=== PATIENT | female | born 1985 | race Caucasian/White ===

== ENCOUNTER 2022-05-24 16:45 | Outpatient (RCR) | payer OTHER, SELFPAY | END 2022-06-01 07:44 | disposition home or self-care (01) | PROVIDERS: Visit Provider Orthopaedic Surgery Sports Medicine | DX: M21.42 Flat foot [pes planus] (acquired), left foot (principal); Z51.89 Encounter for other specified aftercare | CPT/HCPCS: 97110; 97140; 97161 ==

== ENCOUNTER 2023-03-29 13:40 | Outpatient (CLI) | payer OTHER, SELFPAY ==
--- NOTE | 2023-03-29 13:45 | CRLHL7_ITS ---
For Patients: As a result of the 21st Century Cures Act, medical imaging exams and procedure reports are released immediately into your electronic medical record. You may view this report before your referring provider. If you have questions, please contact your health care provider. HISTORY: Bilateral hip pain. TECHNIQUE: Noncontrast MRI of the right and left hips. Axial T1, coronal T1 and coronal STIR large [id number] images were obtained of the entire pelvis. Axial, sagittal and coronal proton density and proton density fat-sat small prnrm-vd-[id number] images were individually acquired of the right and left hips. COMPARISON: No prior. FINDINGS: Osseous structures: There is no acute fracture or pathologic marrow replacement process. No avascular necrosis. No acute stress related change. - Musculotendinous structures and bursae: On the right, there is mild subgluteus daphnie trochanteric bursitis. There is soft tissue edema adjacent to a portion of the gluteus medius tendon more posteriorly with some limited muscle edema involving a small portion of the muscle. There is no high-grade tear of the distal gluteal tendons on the right. On the left, there is no significant tear of the distal gluteal tendons. There is trace fluid within the left subgluteus daphnie trochanteric bursa. Common hamstring tendons are intact. Distal iliopsoas tendons are intact. No iliopsoas bursitis. Conjoined adductor tendons are intact at their medial pubic attachment site. - Right hip: No right hip joint effusion. No significant femoral head-neck junction osseous bump. No definite acetabular retroversion. The articular surfaces of the hip are smooth without focal articular cartilage defect. There is abnormal signal at the base of the anterior superior acetabular labrum on sagittal PD image 21 of series 8 indicating labral tearing. Other portions of labrum appear intact. No right hip joint effusion. No avascular necrosis of the right femoral head. - Left hip: No significant femoral head-neck junction osseous bump. No acetabular retroversion. The articular surfaces of the hip are smooth without focal articular cartilage defect. There is increased signal within the posterior superior acetabular labrum on coronal PD fat-sat 15 of series 5 which could reflects at least labral degeneration and likely relates to labral tearing. Changes extend to involve the superior lateral acetabular labrum. The anterior superior labrum appears more intact. No left hip joint effusion. No avascular necrosis of the left femoral head. - Intrapelvic soft tissues: Distended urinary bladder. Prior hysterectomy. No inguinal hernia. IMPRESSION: 1. Zxtbi-tsfxcdw-zsay-left subgluteus daphnie trochanteric bursitis. 2. On the right, limited strain changes involving the gluteus medius muscle. No high-grade distal tendon tear. 3. On the right, there is likely a small area of anterior superior labral tearing. The right hip joint space appears otherwise maintained. 4. On the left, there is probable tearing of the posterior superior labrum extending to involve the superior lateral acetabular labrum. Left hip joint otherwise maintained. 5. No fracture, stress change or avascular necrosis. Dictated by Edgardo Medina MD @ 03/30/2023 4:00:55 PM RUTH/Dictated by: Edgardo Medina MD @ 03/30/2023 1:19:00 PM (Electronically Signed)
--- NOTE | 2023-03-29 15:15 | CRLHL7_ITS ---
For Patients: As a result of the Century Cures Act, medical imaging exams and procedure reports are released immediately into your electronic medical record. You may view this report before your referring provider. If you have questions, please contact your health care provider. INDICATION: Somatic dysfunction of lumbar region. Low back pain. TECHNIQUE: Multiplanar multisequence noncontrast MR images acquired through the lumbar spine. COMPARISON: None. FINDINGS: Mildly exaggerated lumbar lordosis. Mild leftward lumbar curvature. Vertebral heights maintained. No acute fracture or spondylolisthesis. No T1 hypointense marrow replacing lesions or marrow edema. Normal conus terminates at L1-2. T12-L1 through L2-3: No spinal canal or neural foraminal narrowing. L3-4: Mild disc degeneration. Mild facet arthropathy. No spinal canal or neural foraminal narrowing. L4-5: Annular bulge. Mild facet arthropathy. No spinal canal or neural foraminal narrowing. L5-S1: Epidural fat prominence dlyv-je-aahcqufmqb tapers the thecal sac. Annular bulge. Mild facet arthropathy. No neural foraminal narrowing. IMPRESSION: 1. Mild multilevel lumbar spondylosis without spinal canal or neural foraminal stenosis. 2. Mild multilevel facet arthropathy in the lower lumbar spine. Dictated by Liu Pinto MD @ 03/30/2023 7:50:05 AM (Electronically Signed)
== END 2023-03-29 13:41 | disposition home or self-care (01) ==
PROVIDERS: PCP Nurse Practitioner Family; Visit Provider Physician Assistant
DX: M70.62 Trochanteric bursitis, left hip (principal); S73.192A Other sprain of left hip, initial encounter; S73.191A Other sprain of right hip, initial encounter; M70.61 Trochanteric bursitis, right hip; M54.50 Low back pain, unspecified; M47.896 Other spondylosis, lumbar region; M25.552 Pain in left hip; M25.551 Pain in right hip
CPT/HCPCS: 72148; 73721

== ENCOUNTER 2024-04-25 13:43 | Outpatient (CLI) | payer OTHER, SELFPAY | END 2024-04-25 13:44 | disposition home or self-care (01) | PROVIDERS: PCP Nurse Practitioner Family; Visit Provider Registered Nurse | DX: N64.4 Mastodynia (principal); N64.52 Nipple discharge; Z13.220 Encounter for screening for lipoid disorders; Z13.1 Encounter for screening for diabetes mellitus | CPT/HCPCS: 80061; 82947; 84146; 84443 ==

== ENCOUNTER 2024-05-22 08:31 | Outpatient (CLI) | payer OTHER, SELFPAY ==
--- NOTE | 2024-05-22 08:45 | CRLHL7_ITS ---
For Patients: As a result of the Cures Act, medical imaging exams and procedure reports are released immediately into your electronic medical record. You may view this report before your referring provider. If you have questions, please contact your health care provider. DIGITAL DIAGNOSTIC BILATERAL MAMMOGRAM USING TOMOSYNTHESIS AND COMPUTER-AIDED DETECTION LEFT BREAST ULTRASOUND CLINICAL HISTORY: LEFT breast nipple discharge. COMPARISON: None. TECHNIQUE: Digital BILATERAL mammogram in four projections with computer-aided detection. Tomosynthesis was used in this interpretation. Real-time ultrasound imaging of LEFT breast with imaging documentation. BREAST COMPOSITION: The breasts are heterogeneously dense, which may obscure small masses. FINDINGS: 3D CC/MLO BILATERAL mammogram images submitted. No suspicious mass or architectural distortion. No suspicious calcifications. Targeted LEFT breast ultrasound performed in the subareolar region. No fluid collection or mass. No duct ectasia. IMPRESSION: No suspicious findings. RECOMMENDATIONS: Annual BILATERAL screening mammography. Results and recommendations discussed with the patient. BI-RADS Category 2: Benign A lay language report of this examination will be provided to the patient. Dictated by Ethan Vega MD @ 05/22/2024 10:49:25 AM j/Dictated by: Ethan eVga MD @ 05/22/2024 10:49:00 AM (Electronically Signed)
--- NOTE | 2024-05-22 09:15 | CRLHL7_ITS ---
For Patients: As a result of the Cures Act, medical imaging exams and procedure reports are released immediately into your electronic medical record. You may view this report before your referring provider. If you have questions, please contact your health care provider. PLEASE SEE DIGITAL DIAGNOSTIC BILATERAL MAMMOGRAM PERFORMED SAME DAY CRL:esau cifuentes/Dictated by: Ethan Vega MD @ 05/22/2024 10:49:00 AM (Electronically Signed)
== END 2024-05-22 08:32 | disposition home or self-care (01) ==
LOC: MAMMO 08:33
PROVIDERS: Visit Provider Registered Nurse
DX: N64.52 Nipple discharge (principal); N64.4 Mastodynia
CPT/HCPCS: 76642; 77066; G0279

== ENCOUNTER 2024-11-04 10:29 | Emergency (ER) | payer OTHER, SELFPAY ==
--- OUTSIDE RECORDS SUMMARY | 2024-11-04 10:31 | XMS_ITS | Clinical Summary ---
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 Allergenic Extracts Hives,Itching 11/21/2011 Iodinated Contrast Media Shortness Of Breath,Dizziness 03/14/2013 Diatrizoate Allergen Shortness Of Breath,Itching 04/11/2016 Lactase GI Upset 06/27/2006 Latex Other - Describe In Comment Field 10/28/2013 LATEX PRECAUTIONS due to frequent exposure to latex and hx of seasonal allergies. Nitrofurantoin Monohyd/M-Cryst Hives 04/11/2016 Methocarbamol Other - Describe In Comment Field,Anxiety Medium 09/13/2010 Feelings of restlessness and anxiety Mold Extracts Hives,Edema 11/21/2011 Hydrocodone-Acetaminoph en Headache 07/23/2012 Migraine strength headaches Migraine Bupropion Hives 06/27/2006 Medications cetirizine (ZYRTEC) 10 mg tablet Take 1 tablet by mouth once daily. 0 3 Active oxymetazoline (AFRIN) 0.05 % Drop Inhale 2 Sprays in the nostril(s) 2 times daily if needed. Active cyclobenzaprine (FLEXERIL) 10 mg tablet Take 0.5 tablets by mouth at bedtime if needed for Muscle Spasm. 5 tablet 0 5 Active cholecalciferol (VITAMIN D) 1,000 unit capsule Take 1 capsule by mouth once daily. 0 5 Active PREMARIN 1.25 mg tabletIndication s:Hot flashes due to surgical menopause TAKE ONE TABLET BY MOUTH ONCE DAILY 90 tablet 1 5 Active pregabalin (LYRICA) 200 mg capsule Take 1 capsule by mouth 3 times daily. 0 6 Active celecoxib (CELEBREX) 100 mg capsule Take 1 capsule by mouth 2 times daily with meals. 0 6 Active oxyCODONE-acetam inophen, 10-325 mg, (PERCOCET) 10-325 mg per tablet Take 1 tablet by mouth every 4 hours if needed for Pain. 0 6 Active estrogens conjugated (PREMARIN) 1.25 mg tabletIndication s:Surgical menopause Take 1 tablet by mouth once daily. 90 tablet 4 6 Active SUMAtriptan (IMITREX) 100 mg tabletIndication s:Other type of migraine TAKE 1 TABLET BY MOUTH. 1 TABLET BY MOUTH DAILY FOR MIGRAINE NEEDED. MAY REPEAT EVERY 2 HOURS. MAX DOSE IS 200 MG PER 24 18 tablet 0 6 Active fluticasone (50 mcg per actuation) nasal solution (FLONASE) Inhale 2 Sprays in the nostril(s). Active oxymetazoline (AFRIN) 0.05 % nasal spray Inhale 2 Sprays in the nostril(s). Active celecoxib (CELEBREX) 200 mg capsule 6 Active cyclobenzaprine (FLEXERIL) 5 mg tablet 6 Active oxyCODONE (OXYCONTIN) 10 mg SUSTAINED release tablet 6 Active benzonatate (TESSALON) 100 mg capsuleIndicatio ns:Upper respiratory tract infection, unspecified type Take 1 capsule by mouth 3 times daily if needed for Cough. 21 capsule 6 Active fluticasone (50 mcg per actuation) nasal solution (FLONASE)Indicat ions:Seasonal allergies INHALE 2 SPRAYS IN EACH NOSTRIL TWICE DAILY 1 Bottle 6 Active Active Problems Problem Noted Date Diagnosed Date Sinusitis 08/13/2013 Pain medication agreement 05/22/2013 Overview (04/10/2015): Agreement signed and scanned. Pt now seeing [facility] Dr. Kahtleen Paul for pain management. Chronic pelvic pain yet- taking percocet and doing PT there. Update: 04/10/2015. Pt reports that pain is now being controlled with symbalta and Aleve. Percocet was stopped in Ari2014. Migraine 02/28/2013 Overview (02/28/2013): Treated with Imitrex Seasonal allergies 04/26/2012 Unspecified sinusitis (chronic) 02/23/2011 Vitamin D deficiency 12/06/2010 Unspecified examination 10/07/2009 Overview (02/28/2013): Last Pap Smear 11/2010 Adult TD 11/2005 Immunizations Immunization Administration Dates Next Due Influenza, IIV3 (Age >=3 years) 05/14/2010,06/06,06/27/2006 Influenza, IIV4 05/05/2015 Td (Age >=7 Years) 11/12/2005 Family History Medical History Relation Name Comments Psychiatric illness Father Bipolar Seizures Maternal Aunt Seizures Maternal Grandmother Alcohol/Drug Mother Alcohol Genitourinary Disease Mother Kidney Failure Heart Disease Mother heart 'problem s' Hypertension Mother Psychiatric illness Mother Bipolar Seizures Sister dipika Relation Name Status Comments Father (Age 36) drowning Maternal Aunt Maternal Grandmother Mother Alive Sister dipika Social History Tobacco Use Types Packs/Day Years Used Date Smoking Tobacco: Former Cigarettes 0.5 2 0 08/14/2002 - 08/14/2004 Smokeless Tobacco: Never Alcohol Use Standard Drinks/Week Comments No 0 (1 standard drink = 0.6 oz pur e alcohol) Comments No Sex and Gender Information Value Date Recorded Sex Assigned at Not on file 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 Gender Identity Not on file Sexual Orientation Not on file 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 file Not on file Not on file Obstetrics History Para Term AB IAB SAB Ectopic Multiple Livin g Live Births 1 1 1 1 1 Date Outcome GA Total Labor Labor/2nd/3rd Weight Sex Type Anes PTL [place] A1 A5 Name Clin 08/29 Term F Vag-S pont Living [facility] Last Filed Vital Signs Vital Sign Reading Time Taken Comments Blood Pressure 120/80 05/21/2016 12:55 PM CDT Pulse 79 05/21/2016 12:55 PM CDT Temperature 36.4 C (97.5 F) 05/21/2016 12:55 PM CDT Respiratory Rate 16 05/21/2016 12:55 PM CDT Oxygen Saturation 97% 05/21/2016 12:55 PM CDT Inhaled Oxygen Concentration - - Weight 88.9 kg (196 lb) 05/21/2016 12:55 PM CDT Height 162.6 cm (5' 4.02) 05/21/2016 12:55 PM C DT Body Mass Index 33.63 05/21/2016 12:55 PM CDT Plan of Treatment Health Maintenance Due Date Last Done Comments Tdap 1994 Depression screening for age 12+ 1995 Tetanus booster 11/13/2015 11/12/2005 BMI (ht and wt on same day) for age 18+ 05/21/2017 05/21/2016, 12/04/2015 COVID-19 vaccine series (2023- season) 2024 Influenza Vaccine (#1) 2024 5, 05/14/2010, 06/06/2007, Additional history exists HIV for age 15-65 Completed 04/18/2013 Hepatitis C screening for age 18-79 Completed 04/18/2013 Pneumococcal series for age 6-49 Aged Out No longer eligible based on patient's age to complete this topic Procedures Procedure Name Priority Date/Time Associated Diagnosis Comments EXPOSURE (BBF) RAPID HIV STAT 04/18/2013 5:15 PM CDT EXPOSURE (BBF) ANTI HCV STAT 04/18/2013 5:15 PM CDT from Last 3 Months or Most Recently Relevant to Health Maintenance Results * PATIENT SOURCE RAPID HIV (04/18/2013 5:15 PM CDT) SOURCE RAPID HIV SCREEN Non-react mejia (Nonreact mejia) [facility] Blood specimen (specimen) BLOOD SPECIMEN / Unknown 04/18/2013 5:15 PM CDT 04/18/2013 4:55 PM CDT Suzy Prince MD SEND OUTS Final Result [facility] [place]IP [id number] [place] [id number] * PATIENT SOURCE ANTI HCV (04/18/2013 5:15 PM CDT) SOURCE ANTI HCV Non-react mejia [facility] Blood specimen (specimen) BLOOD SPECIMEN / Unknown 04/18/2013 5:15 PM CDT 04/18/2013 4:55 PM CDT Suzy Prince MD SEND OUTS Final Result [facility] [place] ZIP [id number] [place] [id number] from Last 3 Months or Most Recently Relevant to Health Maintenance Insurance [employer] [facility] Member Subscriber Plan / Payer (Ef fective 2008-Present) Name:Grayson Cooley Relation to Subscriber:Self Name:Grayson Cooley Payer ID:Not on file Group ID:[id number] Type:Not on file [id number] Address: [address] [address] [facility] Advance Directives * Full Code (Latest Code Status on File) Date Activated Date Inactivated Comments 04/18/2013 8:11 PM 04/21/2013 5:06 PM * Full Code Date Activated Date Inactivated Comments 04/18/2013 10:04 AM 04/18/2013 6:08 PM * Full Code Date Activated Date Inactivated Comments 03/14/2013 10:40 AM 03/14/2013 10:01 PM Care Teams [employer] Operator Relationship Specialty Start Date End Date PcpXiao PCP - General 08/18/16
--- OUTSIDE RECORDS SUMMARY | 2024-11-04 10:31 | XMS_ITS | Clinical Summary ---
Author Organization [facility] Address [address] [place] [address] Care Team Providers Care Emery Wheel Worker Name Role Phone No Ref-Primary, Physician Primary Care Provider Suzy Romo CNM Unavailable [phone] Allergies Active Allergy Reactions Criticality Noted Date Comments Adhesive Tape Rash Low 06/27/2011 Adhesive Tape Rash Low 03/27/2024 Contrast Dye Itching,Difficulty breathing 01/15/2014 Contrast Dye Itching,Difficulty breathing High 03/27/2024 Hydrocodone Headache Medium 03/27/2024 Latex Rash Low 03/25/2024 Methocarbamol Anxiety Low 06/27/2011 Methocarbamol Anxiety Low 03/27/2024 Nitrofurantoin Hives Medium 03/27/2024 Hydrocodone-Acetaminophe n 09/13/2012 Migraine strength headaches Bupropion Hcl Hives 06/27/2011 Bupropion Other (See Comments),Hives Medium 03/27/2024 Medications diclofenac (VOLTAREN) 1 % topical gel Apply 1-2 g topically 3 times daily as needed for moderate pain 4 Active estradiol (ESTRACE) 1 MG tablet Take 1 tablet by mouth daily 4 Active cyclobenzaprine (FLEXERIL) 10 MG tabletIndicatio ns:Fibromyalgia ,Chronic pain syndrome Take 1 tablet (10 mg) by mouth 3 times daily as needed for muscle spasms 30 tablet 4 Active morphine (MS CONTIN) 15 MG CR tabletIndicatio ns:Fibromyalgia ,Chronic pain syndrome Take 1 tablet (15 mg) by mouth every 12 hours 8 tablet 4 Active oxyCODONE-aceta minophen (PERCOCET) 10-325 MG per tabletIndicatio ns:Fibromyalgia ,Chronic pain syndrome Take 1 tablet by mouth every 6 hours as needed for breakthrough pain 12 tablet 4 Active pregabalin (LYRICA) 300 MG capsuleIndicati ons:Fibromyalgi a,Chronic pain syndrome Take 1 capsule (300 mg) by mouth 2 times daily 8 capsule 4 Active hydrOXYzine HCl (ATARAX) 50 MG tabletIndicatio ns:Bipolar disorder, current episode depressed, severe, without psychotic features (H),Anxiety Take 1 tablet (50 mg) by mouth 3 times daily as needed for anxiety 90 tablet 4 Active QUEtiapine (SEROQUEL) 25 MG tabletIndicatio ns:PTSD (post-traumatic stress disorder),Anxie ty Take 1 tablet (25 mg) by mouth nightly as needed (second line for sleep after trazodone if waking up from nightmares) 30 tablet 4 Active traZODone (DESYREL) 50 MG tabletIndicatio ns:PTSD (post-traumatic stress disorder),Anxie ty Take 1 tablet (50 mg) by mouth nightly as needed for sleep (first line for sleep) 30 tablet 4 Active fexofenadine (ALYSA) 180 MG tablet Take 180 mg by mouth at bedtime. Active lurasidone (LATUDA) 60 MG TABS tabletIndicatio ns:Bipolar II disorder (H) Take 1 tablet (60 mg) by mouth daily (with dinner). 30 tablet 4 Active prazosin (MINIPRESS) 2 MG capsuleIndicati ons:PTSD (post-traumatic stress disorder) Take 1 capsule (2 mg) by mouth at bedtime. 30 capsule 4 Active prazosin (MINIPRESS) 1 MG capsuleIndicati ons:PTSD (post-traumatic stress disorder) Take 3 capsules (3 mg) by mouth daily. 90 capsule 4 Active DULoxetine (CYMBALTA) 30 MG capsuleIndicati ons:Bipolar II disorder (H) Take 1 capsule (30 mg) by mouth daily. 30 capsule Active Active Problems Problem Noted Date Diagnosed Date Suicidal ideation 04/12/2024 Nonsuicidal self-injury 04/12/2024 PTSD (post-traumatic stress disorder) 04/01/2024 Fibromyalgia 04/01/2024 Chronic pain syndrome 04/01/2024 Bipolar II disorder 03/26/2024 Resolved Problems Problem Noted Date Diagnosed Date Resolved Date Suicidal ideation 03/27/2024 04/01/2024 Bipolar disorder 03/27/2024 04/01/2024 Pelvic pain in female 05/23/20182018 Dyspareunia, female 05/23/2018 04/04/20 Voiding dysfunction 05/23/2018 10/03/19 Social History Tobacco Use Types Packs/Day Years Used Date Smoking Tobacco: Never Alcohol Use Standard Drinks/Week Comments No 0 (1 standard drink = 0.6 oz pur e alcohol) Adolescent Education Answer Date Record ed Getting School Help Needed Not on file 05/22 Interpersonal Safety Answer Date Record ed Do you feel physically and e motionally safe where you currently live? Yes 04/12/2024 Within the past 12 months, h ave you been hit, slapped, kicked or otherwise physically hurt by someone? No 04/12/2024 Within the past 12 months, h ave you been humiliated or emotionally abused in other ways by your partner or ex-partner? No 04/12/2024 Comments No Sex and Gender Information Value Date Recorded Sex Assigned at Female 06/12/2021 5:12 PM CDT Legal Sex Female 4:21 AM [employer] SAL[employer] Gender Identity Female 06/12/2021 5:12 PM CDT Sexual Orientation Bisexual 06/12/2021 5: 12 PM CDT Last Filed Vital Signs Vital Sign Reading Time Taken Comments Blood Pressure 129/79 04/16/2024 3:48 PM CDT Pulse 90 04/16/2024 3:48 PM CDT Temperature 36.4 C (97.5 F) 04/16/2024 3:48 PM CDT Respiratory Rate 14 04/16/2024 7:41 AM CDT Oxygen Saturation 100% 04/16/2024 3:48 PM CDT Inhaled Oxygen Concentration - - Weight 84.4 kg (186 lb) 04/16/2024 7:41 AM CDT Height 168 cm (5' 6.14) 04/12/2024 2:40 AM CDT Body Mass Index 29.89 04/12/2024 2:40 AM CDT Plan of Treatment Health Maintenance Due Date Last Done Comments ADVANCE CARE PLANNING 1983 ANNUAL REVIEW OF HM ORDERS 1983 MAMMO SCREENING 1983 YEARLY PREVENTIVE VISIT 1986 HEPATITIS B IMMUNIZATION (1 of 3 - 19+ 3-dose series) 2002 PAP 2004 COVID-19 Vaccine (2023- season) 2024 INFLUENZA VACCINE (#1) 2024 6, 05/05/2015, 05/14/2010, Additional history exists PHQ-2 (once per calendar year) 2024 DTAP/TDAP/TD IMMUNIZATION (3 - Td or Tdap) 12/16/2026 12/16/2016, 11/12/2005 DIABETES SCREENING 04/11/2027 04/11/2024, 0 03/28/2024, 03/28/2024, Additional history exists LIPID 03/28/2029 03/28/2024 ZOSTER IMMUNIZATION (1 of 2) 2033 HEPATITIS C SCREENING Completed 04/18/2013 HIV SCREENING Completed 04/18/2013, 01/11/2005 HPV IMMUNIZATION Aged Out No longer e ligible based on patient's age to complete this topic MENINGITIS IMMUNIZATION Aged Out No l onger eligible based on patient's age to complete this topic Pneumococcal Vaccine: Pediatrics (0 to 5 Years) and At-Risk Patients (6 to 49 Years) Aged Out No longer eligible based on patient's age to complete this topic Procedures Procedure Name Priority Date/Time Associated Diagnosis Comments COMPREHENSIVE METABOLIC PANEL STAT 04/11/2024 10:18 PM CDT LIPID PROFILE Routine 03/28/2024 7:17 AM CDT from Last 3 Months or Most Recently Relevant to Health Maintenance Results * (ABNORMAL) Comprehensive metabolic panel (04/11/2024 10:18 PM CDT) Sodium 140 135 - 145 mmol/L 04/11/2024 10:56 PM CDT LABORATORY Potassium 4.2 3.4 - 5.3 mmol/L 04/11/2024 10:56 PM CDT LABORATORY Carbon Dioxide (CO2) 26 22 - 29 mmol/L 04/11/2024 10:56 PM CDT LABORATORY Anion Gap 9 7 - 15 mmol/L 04/11/2024 10:56 PM CDT LABORATORY Urea Nitrogen 10.3 6.0 - 20.0 mg/dL 04/11/2024 10:56 PM CDT LABORATORY Creatinine 1.08(H) 0.51 - 0.95 mg/dL 04/11/2024 10:56 PM CDT LABORATORY GFR Estimate 66 >60 mL/min/1.7 3m2 04/11/2024 10:56 PM CDT LABORATORY Comment:eGFR calculated usin 2020 CKD-EPI equation. Calcium 9.1 8.8 - 10.4 mg/dL 04/11/2024 10:56 PM CDT LABORATORY Comment:Reference intervals for this test were updated on 02/27/2024 to reflect our healthy population more accurately. There may be differences in the flagging of prior results with similar values performed with this method. Those prior results can be interpreted in the context of the updated reference intervals. Chloride 105 98 - 107 mmol/L 04/11/2024 10:56 PM CDT LABORATORY Glucose 99 70 - 99 mg/dL 04/11/2024 10:56 PM CDT LABORATORY Alkaline Phosphatase 76 40 - 150 U/L 04/11/2024 10:56 PM CDT LABORATORY AST 12 0 - 45 U/L 04/11/2024 10:56 PM CDT LABORATORY ALT 23 0 - 50 U/L 04/11/2024 10:56 PM CDT LABORATORY Protein Total 6.2(L) 6.4 - 8.3 g/dL 04/11/2024 10:56 PM CDT LABORATORY Albumin 3.9 3.5 - 5.2 g/dL 04/11/2024 10:56 PM CDT LABORATORY Bilirubin Total <0.2 <=1.2 mg/dL 04/11/2024 10:56 PM CDT LABORATORY Blood BLOOD SPECIMEN / Unknown Venipuncture / Unknown 04/11/2024 10:18 PM CDT 04/11/2024 10:35 PM CDT Howard Coronado MD LAB - BLOOD ORDERABLES Final Res ult [facility] [address] Lab (1st floor, no room number) [place] [address], [facility] * (ABNORMAL) Lipid panel (03/28/2024 7:17 AM CDT) Cholesterol 174 <200 mg/dL 03/28/2024 9:09 AM CDT UR LABORATORY Triglycerides 104 <150 mg/dL 03/28/2024 9:09 AM CDT UR LABORATORY Direct Measure HDL 37(L) >=50 mg/dL 03/28/2024 9:09 AM CDT UR LABORATORY LDL Cholesterol Calculated 116(H) <=100 mg/dL 03/28/2024 9:09 AM CDT UR LABORATORY Non HDL Cholesterol 137(H) <130 mg/dL 03/28/2024 9:09 AM CDT UR LABORATORY Blood BLOOD SPECIMEN / Unknown Venipuncture / Unknown 03/28/2024 7:17 AM CDT 03/28/2024 8:01 AM CDT Narrative UR LABORATORY - 03/28/2024 9:09 AM CDT Cholesterol Desirable: <200 mg/dL Triglycerides Normal: Less than 150 mg/dL Borderline High: 150-199 mg/dL High: 200-499 mg/dL Very High: Greater than or equal to 500 mg/dL Direct Measure HDL Female: Greater than or equal to 50 mg/dL Male: Greater than or equal to 40 mg/dL LDL Cholesterol Desirable: <100mg/dL Above Desirable: 100-129 mg/dL Borderline High: 130-159 mg/dL High: 160-189 mg/dL Very High: >= 190 mg/dL Non HDL Cholesterol Desirable: 130 mg/dL Above Desirable: 130-159 mg/dL Borderline High: 160-189 mg/dL High: 190-219 mg/dL Very High: Greater than or equal to 220 mg/dL us Adeola Roy MD LAB - BLOOD ORDERABL ES Final Result UR LABORATORY [facility] Lab [address] [facility] [place] [address], [facility] from Last 3 Months or Most Recently Relevant to Health Maintenance Insurance [place] [address] [place] [address] CHOICE [facility] CHOICE [facility] CHOICE Advance Directives For more information, please contact: [phone] * Full Code (Latest Code Status on File) Date Activated Date Inactivated Comments 04/12/2024 4:20 PM 04/16/2024 7:32 PM All basic and advanced life-sustaining interventions are performed as appropriate Question Answer Comments Code status determined by: Other (please rach t) * Full Code Date Activated Date Inactivated Comments 04/12/2024 2:35 AM 04/12/2024 4:20 PM All basic an d advanced life-sustaining interventions are performed as appropriate Question Answer Comments Code status determined by: Unable to det ermine; FULL CODE until documents or legal decision maker available * Full Code Date Activated Date Inactivated Comments 03/27/2024 8:22 AM 04/01/2024 4:47 PM All basic an d advanced life-sustaining interventions are performed as appropriate on psych unit Question Answer Comments Code status determined by: Other (please documen t) Care Teams Emery Wheel Worker Relationship Specialty Start Date End Date No Ref-Primary, Physician PCP - General 03/26/24 Suzy Romo CNM 03/26/24
--- OUTSIDE RECORDS SUMMARY | 2024-11-04 10:31 | XMS_ITS | Clinical Summary ---
Author Organization [facility] Address [address], [place] [address] Care Team Providers Care Director Of Procurement Name Role Phone Lisa Navas MD Primary Care Provider [phone] Source Comments You are receiving this document as you are listed as the primary care provider,follow-up provider, or the patient has been referred to you for consultation.This is in compliance with the Medicare andMedicaid EHR Incentive Program,which states Providers who transition their patient to another setting of careor provider of care or refers their patient to another provider of care shouldprovide summary care record for each transition of care or referral. [facility] Allergies Active Allergy Reactions Criticality Noted Date Comments Adhesive Rash Low 12/16/2016 Blisters and chino OK with paper tape and tegaderm Can handle most adhesives for only a few hours. Diatrizoate Hives,Breathing Difficulty High 12/16/2016 Hydrocodone-Acetaminop hen Headache 12/16/2016 Migraine strength headaches Migraine Iodinated Contrast Media Dizziness,Breathing Difficulty High 12/16/2016 Methocarbamol Anxiety 12/16/2016 Molds & Smuts Edema,generalized,Hives High 7 Nitrofurantoin Hives High 12/16/2016 Tilactase Gastrointestinal 12/16/2016 Bupropion Hives High 12/16/2016 Medications cetirizine (ZYRTEC) 10 MG tablet Take 10 mg by mouth. 3 Active cholecalciferol ([employer] VITAMIN D3) 1000 UNITS capsule Take 1,000 Units by mouth. 5 Active oxyCODONE-acetam inophen (PERCOCET) 10-325 MG tablet Take 1 Tab by mouth 4 times a day. 6 Active MORphine (MSCONTIN) 15 MG 12 hour release tablet Take 1 Tab by mouth two times a day. 7 Active LYRICA 300 MG capsule Take 1 Tab by mouth two times a day. 7 Active PREMARIN 1.25 MG tablet TAKE 1 TABLET BY MOUTH ONCE DAILY 90 Tablet 8 Active SUMAtriptan (IMITREX) 25 MG tabletIndication s:Migraine without aura and without status migrainosus, not intractable Take 1 Tablet by mouth as needed for Migraine. May repeat after 2 hours if needed. Maximum 8 tabs/24 hours and 9 days/month 9 Tablet 9 Active Additional Information Patient not taking.Reported on 11/24/2020 fluconazole (DIFLUCAN) 150 MG tablet Take 1 tablet. Repeat in 3-5 days if needed 1 Tablet 1 0 Active Additional Information Patient not taking.Reported on 11/24/2020 Active Problems Problem Noted Date Diagnosed Date Migraine without aura and wi thout status migrainosus, not intractable 12/16/2016 Chronic low back pain 12/16/2016 Chronic pelvic pain in female 12/16/2016 Overview (12/16/2016): H/o endometriosis s/p 5 gynecologic, s/p JASON with bilateral oophorectomy 2008, taking premarin daily Immunizations Immunization Administration Dates Next Due Flu Vac (3+ yrs) 05/14/2010,06/06/2007, 6 Influenza, Unspecified Formulation 05/05/2015 Td (7+ yrs) 11/12/2005 Tdap 12/16/2016 Social History Tobacco Use Types Packs/Day Years Used Date Smoking Tobacco: Former Cigarettes Q uit: 08/14/2014 Smokeless Tobacco: Never Alcohol Use Standard Drinks/Week Comments No 0 (1 standard drink = 0.6 oz pur e alcohol) Comments No Sex and Gender Information Value Date Recorded Sex Assigned at Not on file Legal Sex Female 4:28 PM CDT Gender Identity Not on file Sexual Orientation Not on file Last Filed Vital Signs Vital Sign Reading Time Taken Comments Blood Pressure 143/97 11/24/2020 10:48 AM CDT Pulse 85 11/24/2020 10:48 AM CDT Temperature 36.2 C (97.1 F) 11/24/2020 10:48 AM CDT Respiratory Rate 14 11/24/2020 10:48 AM CDT Oxygen Saturation 94% 08/18/2019 12:02 PM SHOP WORKER Inhaled Oxygen Concentration - - Weight 83.9 kg (185 lb) 08/18/2019 12:02 PM SHOP WORKER Height 165.1 cm (5' 5) 03/21/2017 9:28 AM CDT Body Mass Index 30.79 03/21/2017 9:28 AM CDT Plan of Treatment Health Maintenance Due Date Last Done Comments Cervical Cancer Screening Due 1983 Hep C Screening (Preventive Services) 1983 Mammogram 1983 HIV Screening (Preventive Services) 1999 Adult Preventive Visit 2001 HepB (1) 2002 COVID-19 Vaccine (2023- season) 2024 Influenza (#1) 2024 06/09/2016, 04/15, 05/14/2010, Additional history exists DTaP/Tdap/Td (2 - Tdap) 12/16/2026 12/16/2016, 11/12 Zoster/Shingles (1 of 2) 2033 HPV Vaccine Aged Out No longer eligi ble based on patient's age to complete this topic HepA Aged Out No longer eligi ble based on patient's age to complete this topic Hib Aged Out No longer eligi ble based on patient's age to complete this topic IPV (Polio) Aged Out No longer eligi ble based on patient's age to complete this topic MCV4 Aged Out No longer eligi ble based on patient's age to complete this topic Meningococcal B Aged Out No longer el igible based on patient's age to complete this topic Pneumococcal Aged Out No longer eligi ble based on patient's age to complete this topic Insurance [facility] [employer] Care Teams Director Of Procurement Relationship Specialty [place] [address] [place] [address] PCP - General Family Practice 09/20/17
[2024-11-04 10:41] VITALS: BP 137/97; PULSE 106; RESP 18; TEMP 37.6; O2SAT 97; BMI 29.5
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
[2024-11-04] MEDS: ONDANSETRON ODT 4 MG TAB PO (11:30)
--- OUTSIDE RECORDS SUMMARY | 2024-11-04 11:34 | XMS_ITS | Clinical Summary ---
Author Organization [facility] Address [address], [place] [address] Care Team Providers Care Forging Die Finisher Name Role Phone Lisa Navas MD Primary Care Provider [phone] Source Comments You are receiving this document [...] for each transition of care or referral. [facility] Allergies Active Allergy Reactions Criticality Noted Date [...] CDT Oxygen Saturation 94% 08/18/2019 12:02 PM [facility] Inhaled Oxygen Concentration - - Weight 83.9 kg (185 lb) 08/18/2019 12:02 PM [facility] Height 165.1 cm (5' 5) 03/21/2017 9:28 [...] patient's age to complete this topic Insurance [facility] [place] [address] Care Teams Forging Die Finisher Relationship Specialty [place] [address] [place] [address] PCP - General Family Practice 09/20/17
--- OUTSIDE RECORDS SUMMARY | 2024-11-04 11:34 | XMS_ITS | Clinical Summary ---
Author Organization [facility] Address [address] [place] [id number] Care Team Providers Care Tunnel Heading Supervisor Name Role Phone Pcp, No Primary Care [...] Agreement signed and scanned. Pt now seeing [facility] Dr. Kathleen Paul for pain management. 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 Gender Identity Not on file Sexual Orientation Not on file Occupation Industry Job Start Date Job End Date [employer] Not on file Not on file Not on file Obstetrics History Para Term AB IAB SAB Ectopic Multiple Livin g Live Births 1 1 1 1 1 Date Outcome GA Total Labor Labor/2nd/3rd Weight Sex Type Anes PTL Loulou A1 A5 Name Clin 08/29 Term F Vag-S pont [facility] noel Last Filed Vital Signs Vital Sign [...] RAPID HIV SCREEN Non-react mejia (Nonreact mejia) [facility] Blood specimen (specimen) BLOOD SPECIMEN / Unknown 04/18/2013 5:15 PM CDT 04/18/2013 4:55 PM CDT Suzy Prince MD SEND OUTS Final Result [facility] INTERNAL ZIP [id number] [place] [id number] * PATIENT SOURCE ANTI HCV (04/18/2013 5:15 PM CDT) SOURCE ANTI HCV Non-react mejia [facility] Blood specimen (specimen) BLOOD SPECIMEN / Unknown 04/18/2013 5:15 PM CDT 04/18/2013 4:55 PM CDT Suzy Prince MD SEND OUTS Final Result [facility] INTERNAL ZIP [id number] [place] [id number] from Last 3 Months or Most Recently Relevant to Health Maintenance Insurance [employer] [facility] Member Subscriber Plan / Payer (Ef fective 2008-Present) Name:Grayson Cooley Relation to Subscriber:Self Name:Grayson Cooley Payer ID:Not on file Group ID:[id number] Type:Not on file [id number] Address: [address] [address] [facility] Advance Directives * Full Code (Latest Code Status on File) Date Activated Date Inactivated Comments 04/18/2013 8:11 PM 04/21/2013 5:06 PM * Full Code Date Activated Date Inactivated Comments 04/18/2013 10:04 AM 04/18/2013 6:08 PM * Full Code Date Activated Date Inactivated Comments 03/14/2013 10:40 AM 03/14/2013 10:01 PM Care Teams Tunnel Heading Supervisor Relationship Specialty Start Date End Date PcpXiao PCP - General 08/18/16
--- OUTSIDE RECORDS SUMMARY | 2024-11-04 11:34 | XMS_ITS | Clinical Summary ---
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 Gender Identity Female 06/12/2021 5:12 PM CDT [...] LAB - BLOOD ORDERABLES Final Res ult [facility] [address] Lab (1st floor, no room number) [place] [address], [facility] * (ABNORMAL) Lipid panel (03/28/2024 7:17 AM [...] BLOOD ORDERABL ES Final Result [facility] [address] [facility], [address] [place] [address], [facility] from Last 3 Months or Most Recently Relevant to Health Maintenance Insurance [address] [place] [address] CHOICE [facility] CHOICE [facility] CHOICE Advance Directives For more information, please contact: [phone] * Full Code (Latest Code Status on [...] by: Other (please documen t) Care Teams Model Technician Relationship Specialty Start Date End Date No Ref-Primary, Physician PCP - General 03/26/24 Suzy Romo CNM 03/26/24
[2024-11-04 11:48] LABS: Appearance Urine Clear (Clear); Bilirubin Urine Negative (Negative); Blood Urine Negative (Negative); Color Urine Yellow (Yellow); Glucose Urine Negative (Negative); Ketones Urine Negative (Negative); Leukocyte Esterase Urine Negative (Negative); Nitrite Urine Negative (Negative); Protein Urine Negative (Negative); Urobilinogen Urine 0.2 (0.2-1.0)
[2024-11-04 12:11] LABS: RBC Urine 0-2 (0-2); Squamous Epithelial Cell Urine Few (None-Few); WBC Urine 0-2 (0-5)
[2024-11-04 12:16] LABS: Ur HCG Qualitative* Negative (Negative)
[2024-11-04 12:25] LABS: PCR FLU A Negative PCR FLU A (Negative); PCR FLU B Negative PCR FLU B (Negative); PCR RSV Negative PCR RSV (Negative); SARS PCR* Negative SARS-CoV-2 (Negative)
== END 2024-11-04 13:39 | disposition home or self-care (01) ==
PROVIDERS: Emergency Provider Emergency Medicine
DX: J32.9 Chronic sinusitis, unspecified (principal); R11.10 Vomiting, unspecified
CPT/HCPCS: 81001; 81025; 87631; 99283; 99284; A9270

== ENCOUNTER 2024-11-28 12:47 | Outpatient (CLI) | payer OTHER, SELFPAY | END 2024-11-28 12:48 | disposition home or self-care (01) | LOC: NFLDREF 12-04 01:16 | DX: N30.00 Acute cystitis without hematuria (principal); B96.20 Unspecified Escherichia coli [E. coli] as the cause of diseases classified elsewhere | CPT/HCPCS: 87086 ==

== ENCOUNTER 2024-12-03 10:01 | Emergency (ER) | payer OTHER, SELFPAY ==
[2024-12-03 10:21] VITALS: BP 112/73; PULSE 101; RESP 18; TEMP 36.6; O2SAT 97; BMI 27.6
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
--- NOTE | 2024-12-03 11:33 | CRLHL7_ITS ---
For Patients: As a result of the Century Cures Act, medical imaging exams and procedure reports are released immediately into your electronic medical record. You may view this report before your referring provider. If you have questions, please contact your health care provider. INDICATION: Abdominal pain, bilateral flank pain. COMPARISON: None. TECHNIQUE: CT of the abdomen and pelvis without intravenous contrast. Multiplanar axial, coronal, and sagittal reformats were reconstructed. Contrast: None. FINDINGS: Lung bases: 2 millimeter nodule on the right lower lobe on series 3, image 15. Liver: Normal. No mass. Gallbladder and bile ducts: Distended gallbladder. No definitive pericholecystic edema or fluid. No bile duct dilation. Pancreas: Normal. Spleen: Normal. Adrenal glands: Normal. Kidneys: Normal parenchyma. No cyst or solid mass. 4 millimeter calculus in the left lower pole. No urinary tract dilation. Urinary bladder: Normal. Pelvis: No cyst or mass. Vessels: Normal. Bowel: No dilated or inflamed bowel. Normal appendix. Moderate to large stool burden. Lymph nodes: No adenopathy. Peritoneum: No ascites. Abdominal wall: No hernia. Bones: No fractures. No focal worrisome bone lesions. IMPRESSION: 1. There is a 4 millimeter nonobstructing left lower pole renal calculus. No urinary tract dilatation. 2. Distended gallbladder. 3. Moderate to large stool burden. 4. There is a single 2 millimeter lung nodule in the right lower lobe. Per the Fleischner society criteria, follow-up is reserved for patients that are at high risk for primary pulmonary malignancy with a follow-up chest CT in 12 months. Otherwise, no specific imaging follow-up is recommended. Please note that all CT scans at this facility use dose modulation, iterative reconstruction, and/or weight-based dosing when appropriate to reduce radiation dose to as low as reasonably achievable. Dictated by Inocencia Perkins MD @ 12/03/2024 12:29:33 PM (Electronically Signed)
--- OUTSIDE RECORDS SUMMARY | 2024-12-03 11:43 | XMS_ITS | Continuity of Care Document ---
Author Organization [facility] kiran Address [address] [place] [address] Phone Care Team Providers Care Chip Washer Name Role Phone Will Cr WHITMAN Unavailable Unavailabl e Allergies, Adverse Reactions, Alerts Substance Reaction Status Criticality Iodinated Contrast Media Shortness of breath Active No Information hydrocodone Migraines Active No Information MOLD EXTRACTS Pruritis, Uticaria Active No Infor mation CAT HAIR STANDARDIZED ALLERGENIC EXTRACT Pruritis Active No Information methocarbamol Anxiety Active No Information adhesive Rash Active No Information BUPROPION HCL Rash Active No Information LACTOSE-REDUCED FOOD GI upset Active No Info rmation Medications Medication Instructions Dosage Effective Dates (start - stop) Status Comments sumatriptan 100 mg tablet as needed - Acti ve Vitamin D2 50,000 unit capsule - Active Zyrtec 10 mg tablet - Active Flonase 50 mcg/actuation nasal spray,suspension - Active Premarin 0.9 mg tablet - Active ibuprofen 200 mg tablet as needed - Active Procedures Procedure Date OFFICE/OUTPATIENT VISIT, EST OFFICE/OUTPATIENT VISIT, EST OFFICE/OUTPATIENT VISIT, EST THERAPEUTIC ACTIVITIES NEUROMUSCULAR REEDUCATION Surgical trays FLUOROGUIDE FOR SPINE INJECT MOD CS BY SAME PHYS, 5 YRS + Kenalog Triamcinolone acetonide inj Lidocaine injection Inj midazolam hydrochloride Fentanyl citrate injeciton Omnipaque 240 50ml DRAIN/INJECT, JOINT/BURSA Cancelled Appt Fee NEUROMUSCULAR REEDUCATION OFFICE/OUTPATIENT VISIT, EST Psychotherapy 60 Min OFFICE/OUTPATIENT VISIT, EST Psychotherapy 60 Min Cancelled Appt Fee OFFICE/OUTPATIENT VISIT, EST THERAPEUTIC ACTIVITIES NEUROMUSCULAR REEDUCATION Psychotherapy 60 Min OFFICE/OUTPATIENT VISIT, EST NEUROMUSCULAR REEDUCATION PT EVALUATION THERAPEUTIC EXERCISES MANUAL THERAPY NEUROMUSCULAR REEDUCATION THERAPEUTIC EXERCISES PT EVALUATION NEUROMUSCULAR REEDUCATION OFFICE/OUTPATIENT VISIT, EST OFFICE/OUTPATIENT VISIT, EST OFFICE/OUTPATIENT VISIT, EST OFFICE/OUTPATIENT VISIT, EST OFFICE CONSULTATION Advance Directives Directive Yes / No Effective Date File Name No Information Encounters Encounter Description Practice Location Reason(s) For Visit Diagnoses Date Provider Providers Copied on Encounter [facility], [address] [place] [address], [id number] , [place] tel:[phone] [facility] [place] No Information 2 Chicho Hankins. [address], [place], [id number], [place]. tel:[phone] OFFICE/OUTPATI ENT VISIT, [facility], [address] [place], [place], [id number] , [place] tel:[phone] [facility] (chief complaint) LumbagoOther, pain disorder related to psychological factorsSpasm of muscle 0 5-201 5 No Information Referring Provider: Cr Fisher, [address] [place] [place], [address] . tel:[phone] OFFICE/OUTPATI ENT VISIT, [facility], [address] [place] [address], [id number] , [place] [phone] [facility] (chief complaint) LumbagoPain in joint involving pelvic region and thigh Apr-0 2-201 5 No Information Referring Provider: Cr Fisher, [address] [place] [address] [place], [address] . tel:[phone] OFFICE/OUTPATI ENT VISIT, EST [facility], [address] [place] [address], [id number] , [place] tel:[phone] [facility] [place] bilateral hip pain (chief complaint) low back pain (chief complaint) Pain in joint involving pelvic region and thighLumbagoEndo metriosis, site unspecifiedSpasm of muscle Mar-0 5-201 5 No Information Referring Provider: Cr Fisher, [address] [place], [place] [address], [address] . tel:[phone] [facility], [address] [place] [address], [id number] , [place] tel:[phone] [facility] Hip Pain (chief complaint) low back pain (chief complaint) Pain in joint involving pelvic region and thigh Mar-0 - 5 Cresencio Martinez. [address] [place] [address], [address], [place]. tel:[phone] Referring Provider: Cr Fisher, [address] [place], [place] [address], [address] . tel:[phone] [facility], [address] [place] [address], [id number] , [place] tel:[phone] [facility] involving pelvic region and thigh Sep-2 5 Beverly Wang. [address] [place] [address], [id number], [place]. tel:[phone] Referring Provider: Cr Fisher, [address] [place], [place] [address], [address] . tel:[phone] [facility], [address] [place] [address], [id number] , [place] tel:[phone] [facility] [place] No Information 5 Chicho Hankins. [address] [place] [address], [id number], [place]. tel:[phone] Referring Provider: Cr Fisher, [address] [place], [place] [address], [address] . tel:[phone] [facility], [address] [place] [address], [id number] , [place] tel: [phone] [facility] [place] low back pain (chief complaint) Hip Pain (chief complaint) Lumbago 0 5 Cresencio Martinez. [address] [place] [address], [address], [place]. tel:[phone] Referring Provider: Cr Fisher, [address] [place], [place] [address], [address] . tel:[phone] OFFICE/OUTPATI ENT VISIT, EST [facility], [address] [place] [address], [id number] , [place] tel: [phone] [facility] [place] low back pain (chief complaint) bilateral hip pain (chief complaint) Pain in joint involving pelvic region and thighLumbagoOthe r, pain disorder related to psychological factorsSpasm of muscle 0 5 No Information Referring Provider: Cr Fisher, [address] [place], [place] [address], [address] . tel:[phone] Psychotherapy 60 Min [facility], [address] [place] [address], [id number] , [place] tel: [phone] [facility] [place] Dysthymic disorderOther, pain disorder related to psychological factorsAnxiety state, unspecified No Information Referring Provider: Cr Fisher, [address] [place] [address] [place], [address] . tel:[phone] OFFICE/OUTPATI ENT VISIT, EST [facility], [address] [place] [address], [id number] , [place] tel: [phone] [facility] low back pain (chief complaint) Pelvic pain (chief complaint) Endometriosis, site unspecifiedLumba goNeuralgia, neuritis, and radiculitis, unspecifiedOther , pain disorder related to psychological factorsSpasm of muscle 5 No Information Referring Provider: Cr Fisher, [address] [place] [address] [place], [address] . tel:[phone] Psychotherapy 60 Min [facility], [address] [place] [address], [id number] , [place] tel: [phone] [facility] [place] Other, pain disorder related to psychological factorsMajor depressive affective disorder, recurrent episode, moderate degreeAnxiety 4 No Information Referring Provider: Cr Fisher, [address] [place], [place] [address], [address] . tel:[phone] [facility], [address] [place] [address], [id number] , [place] tel: [phone] [facility] [place] No Information 4 Cresencio Martinez. [address] [place] [address], [address], [place]. tel:[phone] Referring Provider: Cr Fisher, [address] [place] [address] [place], [address] . tel:[phone] OFFICE/OUTPATI ENT VISIT, EST [facility], [address] [place] [address], [id number] , [place] tel:[phone] [facility] Pelvic pain (chief complaint) low back pain (chief complaint) Endometriosis, site unspecifiedLumba goOther, pain disorder related to psychological factorsRadiculit is, Thoracic or LumbarSpasm of muscle 4 Beverly Wang. [address] [place] [address], [id number], [place]. tel:[phone] Referring Provider: Cr Fisher, [address] [place], [place] [address], [address] . tel:[phone] [facility], [address] [place] [address], [id number] , [place] tel:[phone] [facility] [place] low back pain (chief complaint) Lumbago 4 Cresencio Martinez. [address] [place] [address], [address], [place]. tel:[phone] Referring Provider: Cr Fisher, [address] [place], [place] [address], [address] . tel:[phone] Psychotherapy 60 Min [facility], [address] [place] [address], [id number] , [place] tel:[phone] [facility] [place] Other, pain disorder related to psychological factorsMajor depressive affective disorder, recurrent episode, moderate degree 4 No Information Referring Provider: Cr Fisher, [address] [place], [place] [address], [address] . tel:[phone] OFFICE/OUTPATI ENT VISIT, [facility], [address] [place] [address], [id number] , [place] tel:[phone] [facility] pelvic pain (chief complaint) low back pain (chief complaint) LumbagoEndometri osis, site unspecifiedNeura lgia, neuritis, and radiculitis, unspecified 4 Beverly Wang. [address] [place] [address], [id number], [place]. tel:[phone] Referring Provider: Cr Fisher, [address] [place], [place] [address], [address] . tel:[phone] [facility], [address] [place] [address], [id number] , [place] [phone] [facility] pelvic pain (chief complaint) back pain (chief complaint) No Information 4 Cresencio Martinez. [address] [place] [address], [address], [place]. tel:[phone] Referring Provider: Cr Fisher, [address] [place], [place] [address], [address] . tel:[phone] [facility], [address] [place] [address], [id number] , [place] tel:[phone] [facility] [place] pelvic pain (chief complaint) back pain (chief complaint) No Information 4 No Information Referring Provider: Cr Fisher, [address] [place] [address] [place], [id number] . tel:[phone] [facility], [address] [place] [address] [place], [id number] , [place] tel:[phone] [facility] [place] pelvic pain (chief complaint) back pain (chief complaint) Lumbago 4 No Information Referring Provider: rC Fisher, [address] [place] [address] [place], [address] . tel:[phone] OFFICE/OUTPATI ENT VISIT, [facility], [address] [place] [address] [place], [id number] , [place] tel:[phone] [facility] [place] pelvic pain (chief complaint) Abdominal pain, other specified siteEndometriosi s, site unspecifiedRadic ulitis, Thoracic or Lumbar May-0 4 Beverly Wang. [address] [place], [id number], [place]. tel:[phone] Referring Provider: Cr Fisher, [address] [place] [address] [place], [address] . tel:[phone] OFFICE/OUTPATI ENT VISIT, [facility], [address] [place] [address] [place], [id number] , [place] tel:[phone] [facility] [place] pelvic pain (chief complaint) low back pain (chief complaint) Abdominal pain, other specified siteEndometriosi s, site unspecified 0 4 No Information Referring Provider: Cr Fisher, [address] [place] [address] [place], [id number] . tel:[phone] OFFICE/OUTPATI ENT VISIT, [facility], [address] [place] [address] [place], [place], [id number] , [place] tel:[phone] [facility] [place] pelvic pain (chief complaint) right low back pain (chief complaint) Radiculitis, Thoracic or Lumbar 4 Will Cr. [address] [place] [address], [id number], . tel:[phone] Referring Provider: Cr Fisher, [address] [place] [address] [place], [address] . tel:[phone] OFFICE/OUTPATI ENT VISIT, EST [facility], [address] [place] [address], [id number] , [phone] [facility] [place] pelvic pain (chief complaint) Endometriosis, site unspecifiedAbdom inal pain, other specified site 4 Will Cr. [address] [place] [address], [id number], . tel:[phone] Referring Provider: Cr Fisher, [address] [place] [address] [place], [address] . tel:[phone] OFFICE CONSULTATION [facility], [address] [place] [address], [id number] , [place] [phone] [facility] pelvic pain (chief complaint) Therapeutic Drug MonitoringAbdomi nal pain, other specified siteDepressionEn dometriosis, site unspecifiedEndom etriosis, site unspecified 4 Will Cr. [address] [place] [address], [id number], . tel:[phone] Referring Provider: Cr Fisher, [address] [place], [place] [address], [address] . tel:[phone] Family History Family Member Type Diagnosis Age At Onset No Information Payers Payer name Insurance type Covered democrat ID Caty blue(s) [employer] [id number] Social History Type Description Quantity Date Captured Comments Sex Female Smoking Status No Information Chief Complaint And Reason For Visit No Information Reason For Referral Reason For Referral No Information History Of Present Illness Encounter Date Complaint History Of Prese nt Illness low back pain Severity level i s 4. Duration: chronic. The problem is improving. It occurs persistently. Location of pain is lower back and gluteal area.The patient describes the pain as an ache and burning. Symptoms are aggravated by bending, daily activities, running, standing and walking. Symptoms are relieved by pain meds/drugs, stretching, rest and sitting. low back pain (comments) Pt. ret urns today for continued evaluation of low back pain; pt. was discontinued from opioid medications due to inappropriate UDTs x 2. Pt. did admit that opioid medication was becoming a problem. She is interested in non-opioid pain management; continues pain psychology. Cymbalta and topical Voltaren prescribed at previous visit; to review, gabapentin had intolerable side effects. Pt. states today, she has successfully titrated Cymbalta to 60 mg/day and reports excellent benefit. She has had to use Voltaren less; she requests new order and location for physical therapy. Requests completion of leave of absence form for work. May also consider TPIs for lumbar paraspinals. Back Pain Severity level i s 4. Duration: chronic. The problem is improving. It occurs persistently. Location of pain is lower back and bilateral hips.The patient describes the pain as an ache and sharp. Symptoms are aggravated by lifting and working. Symptoms are relieved by physical therapy and rest. Back Pain (comments) Pt is here for follow up and reevaluation. This is my first encounter with this patient. Jennifer states she did receive her DISTRICT LOSS PREVENTION MANAGER violation letter. She did not have oxycodone in her UDT twice. Pt states she would like to continue care here and focus on non-narcotic options for pain control. She states she does not plan to continue Percocet as she states it was becoming a problem. She states side effects with gabapentin when she uses her imitrex (of which she uses rarely for migraines). She has not tried cymbalta and denies antidepressant use. She would like to continue PT.Lumbar MRI on file was reviewed and this was normal. bilateral hip pain Severity leve l is moderate. The problem is improved. It occurs occasionally. Location of pain is bilateral lateral hip. There is radiation of pain to the bilateral inguinal region. The patient describes the pain as an ache. Symptom is aggravated by sitting. Relieving factors include injection and stretching. low back pain Severity level i s 5. Duration: ongoing. The problem is improving. It occurs persistently. Location of pain is lower back.There is no radiation of pain. The patient describes the pain as an ache and sharp. Symptoms are aggravated by sitting and prolonged positioning. Symptoms are relieved by movement, pain meds/drugs and stretching. low back pain (comments) Pt. ret urns today; on track with Percocet. UDT performed at previous visit was absent for Percocet - a repeated UDT to be ordered today. Patient confirms her last dose was administered this morning.Pt. continues with pain psychology and physical therapy.Bilateral hip joint injection performed 10/09/14; pt. reports >75% pain relief. She states pain is becoming less frequent and she feels she is improving.Request for completion of work-absence release form in office visit. low back pain The problem is i mproving. It occurs occasionally. Location of pain is lower back.The patient describes the pain as an ache. Symptoms are aggravated by bending, lifting and twisting. Additional information: Back pain will increase with increased hip pain. 5/10 pain rating is when pain is present ; back pain can be 0/10. Hip Pain The problem is i mproved. It occurs constantly. Location of pain is bilateral anterior hip. The patient describes the pain as an ache. Symptom is aggravated by prolonged sitting and then sit to stand. Additional information: Bilateral hip injections on 10/09/14 with good results. Pain level 4/10. Pt had a [address] to clinic. low back pain Severity level i s 4. Location of pain is lower back and bilateral hips.The patient describes the pain as an ache and stiffness. Symptoms are aggravated by bending and lifting. Hip Pain Duration 1 Month . Location of pain is bilateral lateral hip, R>L. The patient describes the pain as an ache. Symptom is aggravated by climbing stairs, lying down, sitting and prolonged sitting then standing up. Additional information: Pain level 6/10. low back pain bilateral hip pain (comments) Pt . returns to clinic today for continued evaluation. Reports resolution of pelvic pain secondary to endometriosis. Pain has more recently become present in low back and bilateral hips; patient does state back pain continues to improve, but hips seem to worsen especially with walking long distances or prolonged positioning. She denies tenderness with pressure to hip bursa bilaterally; she states right is worse than left. Pt. returns without medications; this is the second consecutive occurance. Due to be out yesterday, 2/, stating she took her last dose this morning. Pt. is due to sign an updated DISTRICT LOSS PREVENTION MANAGER today; review of the [place] Prescription Monitoring Program reveals two short-duration prescriptions filled by non-[facility] providers. Pt. states she believes these prescriptions came from the ED following intense pain flares. bilateral hip pain Severity leve l is moderate. Duration ongoing. The problem is showing no change. The pain is recurring. Location of pain is bilateral lateral hip, bilateral R>L. There is no radiation of pain. The patient describes the pain as an ache, burning and sharp. Symptom is aggravated by active movement, lifting weight, passive movement, prolonged standing and Walking. Relieving factors include rest, physical therapy and Sitting. Pelvic pain (comments) Patient R TC for continued evaluation of pelvic pain post-hysterectomy 04/2013 secondary to endometriosis. Presents on track medications today with small surplus. Patient is participating in physical therapy for postural church at [facility]. Continues to see Gabriela pain psychologist, monthly. Patient has stated she sometimes feels as though pain is coming from her low back and radiating forward to groin; lumbar MRI and pelvic MRIs have been reviewed, both of which are unremarkable. We had discussed the likely muscular component of back pain. Lidocaine ointment and cyclobenzaprine prescribed at previous visit which are providing excellent relief. 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 Patient states her pelvic pain has mostly disapated; the low back pain persists and worsens with long shifts at work. Patient has medical leave of absence paperwork, so that she may be excused from work if she experiences a pain flare; she requests this to be completed in office visit today. low back pain Severity level i s 6. Duration: chronic. Location of pain is lower back and bilateral hips. Pain is radiated to the back.The patient describes the pain as an ache and sharp. Context: endometriosis. Symptoms are aggravated by lifting. Symptoms are relieved by pain meds/drugs, physical therapy and sitting with elevation of feet. Pelvic pain low back pain (comments) Patient RTC for continued evaluation of pelvic pain post-hysterectomy 04/2013 secondary to endometriosis. MRI of pelvis reviewed today; unremarkable. Presents on track medications today. Patient is participating in physical therapy for postural church at [facility]. Continues to see Gabriela, pain psychologist, monthly. Patient states she sometimes feels as though pain is coming from her low back and radiating forward to groin; lumbar MRI was ordered at previous visit to determine if low back pain was a separate issue.MRI reviewed by myself and with patient: normal lumbar MRI. Discussed the likely muscular component of back pain and recommended management options. Patient states pelvic pain is stable, but low back pain was worsened with an 11 hour shift at work; she has mandatory extended hours at [facility] due to the holidays. low back pain Duration: acute. The problem is changing in character. It occurs intermittently. Location of pain is lower back. Pain is radiated to the back.The patient describes the pain as an ache and burning. Symptoms are aggravated by daily activities and prolonged positioning. Symptoms are relieved by stretching. Pelvic pain Duration: chroni c. Severity level is 7. It occurs intermittently and is stable. Location: bilateral. The pain radiates to the back. The pain is aching, burning and sharp. Context: endometriosis. The pain is aggravated by walking and Working. The pain is relieved by pain/RX meds, physical therapy and stretching. low back pain Location of pain is lower back and R hip > L hip.The patient describes the pain as an ache, deep and sharp. Symptoms are aggravated by changing positions, standing, twisting, walking, prolonged positioning and carrying. Additional information: worked 12 hours, walking around and standing a lot at [facility], on the following day she could hardly walk and could not work. Functional Status Date Functional Assessmen t No Information Instructions Date Instruction Additional Infor mayelin Continue current medication Reviewed medications Follow exercise program Patient did not brin g medications to office visit today. Reviewed medications Continue current medication Continue current medication Activity as tolerated Medications counted, patient has a surplus Medications counted, patient is on track. Activity as tolerated Continue current medication Continue current medication Medications counted, patient is on track. Oswestry Score New medication is prescribed Assessments Type Assessment Date No Information Patient Care Teams Name Effective Dates (start - stop) Status Members No Information
--- OUTSIDE RECORDS SUMMARY | 2024-12-03 11:43 | XMS_ITS | Clinical Summary ---
Author Organization [facility] Address [address], [place] [address] Care Team Providers Care Keg Filler Name Role Phone Lisa Navas MD Primary Care Provider [phone] Source Comments You are receiving this document [...] for each transition of care or referral. [facility] Allergies Active Allergy Reactions Criticality Noted Date [...] CDT Oxygen Saturation 94% 08/18/2019 12:02 PM GEOPHYSICAL SUPPORT SPECIALIST Inhaled Oxygen Concentration - - Weight 83.9 kg (185 lb) 08/18/2019 12:02 PM GEOPHYSICAL SUPPORT SPECIALIST Height 165.1 cm (5' 5) 03/21/2017 9:28 AM CDT Body Mass Index 30.79 03/21/2017 9:28 AM CDT Plan of Treatment Health Maintenance Due Date Last Done Comments Cervical Cancer Screening Due 1983 Hep C Screening (Preventive Services) 1983 Mammogram 1983 HIV Screening (Preventive Services) 1999 Adult Preventive Visit 2001 HepB Vaccine (1) 2002 COVID-19 Vaccine ( - 2023- season) 2024 Influenza Vaccine (#1) 2024 6, 05/05/2015, 05/14/2010, Additional history exists DTaP/Tdap/Td Vaccine (2 - Tdap) 12/16/2026 12/16/2016, 11/12/2005 Zoster/Shingles Vaccine (1 of 2) 2033 HPV Vaccine Aged Out No longer eligi ble based on patient's age to complete this topic HepA Vaccine Aged Out No longer eligi ble based on patient's age to complete this topic Hib Vaccine Aged Out No longer eligi ble based on patient's age to complete this topic IPV (Polio) Vaccine Aged Out No longe r eligible based on patient's age to complete this topic MCV4 Vaccine Aged Out No longer eligi ble based on patient's age to complete this topic Meningococcal B Vaccine Aged Out No l onger eligible based on patient's age to complete this topic Pneumococcal Vaccine Aged Out No long er eligible based on patient's age to complete this topic Insurance [facility] Care Teams Keg Filler Relationship Specialty Start [place] [id number] [place], [place] [phone] PCP - General Family Practice 09/20/17
--- OUTSIDE RECORDS SUMMARY | 2024-12-03 11:43 | XMS_ITS | Clinical Summary ---
Author Organization [facility] Address [address] [place] [id number] Care Team Providers Care Oracle Software Engineer Name Role Phone Pcp, No Primary Care [...] Agreement signed and scanned. Pt now seeing [facility] Dr. Kathleen aPul for pain management. 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 on file Not on file Not on file Obstetrics History Para Term AB IAB SAB Ectopic Multiple Livin g Live Births 1 1 1 1 1 Date Outcome GA Total Labor Labor/2nd/3rd Weight Sex Type Anes PTL Loulou A1 A5 Name Clin 08/29 Term F Vag-S pont Living [facility] noel Last Filed Vital Signs [...] vaccine series (2023- season) 2024 Influenza Vaccine (Season Ended) 2025 05/05/2015, 05/14/2010, 06/06/2007, Additional history exists HIV for [...] RAPID HIV SCREEN Non-react mejia (Nonreact mejia) [facility] Blood specimen (specimen) BLOOD SPECIMEN / Unknown 04/18/2013 5:15 PM CDT 04/18/2013 4:55 PM CDT us Suzy Prince MD SEND OUTS Final Result [facility] [place]NAL ZIP [address] [place] [id number] * PATIENT SOURCE ANTI HCV (04/18/2013 5:15 PM CDT) SOURCE ANTI HCV Non-react mejia [facility] Blood specimen (specimen) BLOOD SPECIMEN / Unknown 04/18/2013 5:15 PM CDT 04/18/2013 4:55 PM CDT Suzy Prince MD SEND OUTS Final Result Performing Organization Address City/[facility]/ZIP Co de Phone Number [facility] INTERNAL ZIP [address] [place] [phone] from Last 3 Months or Most Recently Relevant to Health Maintenance Insurance [email or web address] [facility] Member Subscriber Plan / Payer (Ef fective 2008-Present) Name:Grayson Cooley Relation to Subscriber:Self Name:Grayson Cooley Payer ID:Not on file Group ID:[id number] Type:Not on file [id number] Address: [address] [id number] [facility] Advance Directives * Full Code (Latest Code Status on File) Date Activated Date Inactivated Comments 04/18/2013 8:11 PM 04/21/2013 5:06 PM * Full Code Date Activated Date Inactivated Comments 04/18/2013 10:04 AM 04/18/2013 6:08 PM * Full Code Date Activated Date Inactivated Comments 03/14/2013 10:40 AM 03/14/2013 10:01 PM Care Teams Oracle Software Engineer Relationship Specialty Start Date End Date PcpXiao PCP - General 08/18/16
--- OUTSIDE RECORDS SUMMARY | 2024-12-03 11:44 | XMS_ITS | Clinical Summary ---
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 [employer] Gender Identity Female 06/12/2021 5:12 PM CDT [...] LAB - BLOOD ORDERABLES Final Res ult [facility] [address] Lab (1st floor, no room number) [place] [address], [facility] * (ABNORMAL) Lipid panel (03/28/2024 7:17 AM [...] BLOOD ORDERABL ES Final Result [facility] [address] [facility], [address] [place] [address], [facility] from Last 3 Months or Most Recently Relevant to Health Maintenance Insurance [place] [place] [address] [facility]ICE [facility] Advance Directives For more information, please contact: [phone] * Full Code (Latest Code Status on [...] by: Other (please documen t) Care Teams Rodding Anode Worker Relationship Specialty Start Date End Date No Ref-Primary, Physician PCP - General 03/26/24 Suzy Romo CNM 03/26/24
[2024-12-03 12:00] LABS: Lactate* 0.8 mmol/L (0.5-1.9)
[2024-12-03 12:05] LABS: Basophils Absolute Auto 0.03 K/uL (0.00-0.30); Basophils Percent Auto 0.5 % (0.0-3.0); Eosinophils Absolute Auto 0.25 K/uL (0.00-0.50); Hematocrit 39.4 % (33.0-51.0); Hemoglobin* 12.4 gm/dL (12.0-16.0); Immature Granulocytes Abs Auto 0.01 K/uL (0.00-0.30); Immature Granulocytes Pct Auto 0.2 %; Lymphocytes Absolute Auto 1.33 K/uL (0.90-2.90); Lymphocytes Percent Auto 21.5 % (20-44); Mean Corpuscular HGB Conc 32 gm/dL (32-36); Mean Corpuscular Hemoglobin 27 pg (26-34); Mean Corpuscular Volume 86 fL (80-100); Monocytes Percent Auto 8.1 % (0.0-11.0); Neutrophils Absolute Auto 4.07 K/uL (1.7-7.0); Neutrophils Percent Auto 65.7 % (42.0-72.0); Platelet Count* 267 K/uL (140-440); Red Blood Count 4.61 m/uL (4.00-5.20); White Blood Count* 6.19 K/uL (4.50-11.00)
[2024-12-03 12:16] LABS: Slide Review Reflex No
[2024-12-03 12:18] LABS: Albumin* 4.6 g/dL (3.3-5.0); Chloride* 98 mmol/L (96-114)
[2024-12-03 12:19] LABS: Potassium* 3.1 mmol/L (3.6-5.1); Sodium* 136 mmol/L (135-149)
[2024-12-03 12:21] LABS: Alanine Aminotransferase* 15 U/L (4-35); Alkaline Phosphatase* 77 U/L (40-150); Anion Gap 11 mEq/L (7-15); Aspartate Amino Transferase* 19 U/L (12-35); Bilirubin Total* 0.6 mg/dL (0.1-1.5); Blood Urea Nitrogen* 15 mg/dL (5-24); Carbon Dioxide* 27 mmol/L (20-32); Creatinine* 1.6 mg/dL (0.5-1.5); Est. Creatinine Clearance* 41.64; Estimated Glomerular Filt Rate 41 ml/min; Glucose* 111 mg/dL (60-115); Lipase* 17 U/L (23-300); Total Protein* 7.1 g/dL (6.0-8.3)
[2024-12-03 12:22] LABS: Calcium* 9.7 mg/dL (8.4-10.6)
[2024-12-03] MEDS: KETOROLAC 15 MG/ML inj IVP (12:25)
[2024-12-03] MEDS: 0.9 % SODIUM CHLORIDE 1000 ml 1,000 ML IV (12:25)
[2024-12-03] MEDS: ONDANSETRON 2 MG/ML inj 4 MG IVP (12:25)
[2024-12-03 12:54] LABS: Appearance Urine Slightly Cloudy (Clear); Bilirubin Urine Negative (Negative); Blood Urine Negative (Negative); Color Urine Dark yellow (Yellow); Glucose Urine Negative (Negative); Ketones Urine Negative (Negative); Leukocyte Esterase Urine Negative (Negative); Nitrite Urine Negative (Negative); Protein Urine 1+ (Negative); Specific Gravity Urine 1.025 (1.000-1.030); Urobilinogen Urine 0.2 (0.2-1.0)
[2024-12-03 13:24] LABS: Bacteria Urine Few; RBC Urine 0-2 (0-2); Squamous Epithelial Cell Urine Moderate (None-Few)
[2024-12-03] MEDS: POTASSIUM BICARB 25 MEQ EFFERVESCENT TAB 50 MEQ PO (13:27)
[2024-12-03] MEDS: SULFA/TRIMETHOPRIM 800/160 1 TAB PO (13:49)
[2024-12-03 13:50] VITALS: BP 114/79; PULSE 75; O2SAT 98
== END 2024-12-03 14:04 | disposition home or self-care (01) ==
PROVIDERS: Emergency Provider Emergency Medicine
DX: N39.0 Urinary tract infection, site not specified (principal); R11.10 Vomiting, unspecified; E87.6 Hypokalemia; E86.0 Dehydration; N17.9 Acute kidney failure, unspecified; R91.1 Solitary pulmonary nodule
CPT/HCPCS: 36415; 74176; 80053; 81001; 83605; 83690; 85025; 87086; 93005; 96361; 96374; 96375; 99284; 99285; A9270; J1885; J2405; J7030

== ENCOUNTER 2025-04-10 15:03 | Outpatient (CLI) | payer OTHER, SELFPAY | END 2025-04-10 15:04 | disposition home or self-care (01) | LOC: FRMREF 15:05 | PROVIDERS: Visit Provider Nurse Practitioner Family | DX: F11.20 Opioid dependence, uncomplicated (principal) | CPT/HCPCS: 80053; 82306; 84443; 86140 ==